=== PATIENT | male | born 2000 | race Caucasian/White ===

== ENCOUNTER 2020-07-01 09:50 | Emergency (ER) | payer OTHER ==
[~2020-07-01] VITALS: Ht 185.4 cm; Wt 127.0 kg
[2020-07-01] MEDS ORDERED: KEFLEX500 M1 PO (11:03)
[2020-07-01 11:12] VITALS: BP 127/68
== END 2020-07-01 11:13 | disposition home or self-care (01) ==
LOC: M.ERS 09:50
DX: S62.630A Displaced fracture of distal phalanx of right index finger, initial encounter for closed fracture (principal); W23.0XXA Caught, crushed, jammed, or pinched between moving objects, initial encounter; Y93.89 Activity, other specified; Y92.89 Other specified places as the place of occurrence of the external cause; Y99.8 Other external cause status